=== PATIENT | male | born 1995 | race Asian ===

== ENCOUNTER 2018-05-16 21:27 | Emergency (ER) | payer SELFPAY ==
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
[2018-05-16 23:12] VITALS: BP 129/83
== END 2018-05-16 23:09 | disposition home or self-care (01) ==
PROC: 0HQ1XZZ Repair Face Skin, External Approach (ICD-10-PCS; principal; 2018-05-16)
DX: S01.81XA Laceration without foreign body of other part of head, initial encounter (principal); S01.511A Laceration without foreign body of lip, initial encounter; S80.212A Abrasion, left knee, initial encounter; V18.0XXA Pedal cycle driver injured in noncollision transport accident in nontraffic accident, initial encounter; Y93.55 Activity, bike riding; Y92.9 Unspecified place or not applicable; Y99.9 Unspecified external cause status